=== PATIENT | female | born 1955 | race Caucasian/White ===

== ENCOUNTER 2017-03-14 09:33 | Outpatient (CLI) | payer OTHER ==
--- NOTE | 2017-03-14 14:07 | XRAY Report ---
DATE OF SERVICE: 03/14/2017 THREE VIEW LEFT ELBOW: 03/14/2017 CLINICAL INDICATION: Joint pain. FINDINGS: AP, lateral, oblique views of the left elbow demonstrate no evidence of fracture or dislocation. No effusion is present. The joint spaces appear unremarkable. IMPRESSION: NORMAL LEFT ELBOW. TD: 03/14/2017 14:06
== END 2017-03-14 09:34 | disposition home or self-care (01) ==
LOC: DI 09:33
PROVIDERS: ATTEND Physician Assistant Medical
DX: M25.522 Pain in left elbow (principal)

== ENCOUNTER 2017-07-11 08:00 | Outpatient (CLI) | payer BC, OTHER ==
[2017-07-11 13:18] LABS: CHOL/HDL RATIO 4.6 (<4.4); CHOLESTEROL 230 mg/dL; HDL CHOLESTEROL 50 mg/dL; LDL CHOLESTEROL,CALCULATED 137 mg/dL; LDL/HDL RATIO 2.7 (<4.4); VLDL CHOLESTEROL 43 mg/dL
== END 2017-07-11 08:01 | disposition home or self-care (01) ==
LOC: LAB.N 08:00
PROVIDERS: ATTEND Physician Assistant Medical
DX: E78.2 Mixed hyperlipidemia (principal); Z79.899 Other long term (current) drug therapy
CPT/HCPCS: 36415; 80061; 83721

== ENCOUNTER 2017-12-25 08:00 | Outpatient (CLI) | payer BC, OTHER ==
[2017-12-25 15:45] LABS: ALBUMIN 4.2 g/dL (3.2-5.5); ALBUMIN/GLOBULIN RATIO 1.2 (1.0-2.2); ALKALINE PHOSPHATASE 88 IU/L (42-121); ALT ALANINE AMINOTRANSFERASE 31 IU/L (10-60); AST ASPARTATE AMINOTRANSFERASE 25 IU/L (10-42); BILIRUBIN,TOTAL 0.6 mg/dL (0.2-1.0); BUN - BLOOD UREA NITROGEN 16 mg/dL (6-20); CALCIUM 8.8 mg/dL (8.5-10.3); CARBON DIOXIDE - CO2 23 mmol/L (21-32); CHLORIDE 105 mmol/L (101-111); CHOL/HDL RATIO 4.4 (<4.4); CHOLESTEROL 231 mg/dL; CREATININE 0.8 mg/dL (0.4-1.0); GFR - MDRD 73 (>89); GLUCOSE 96 mg/dL (70-100); HDL CHOLESTEROL 52 mg/dL; LDL CHOLESTEROL,CALCULATED 140 mg/dL; LDL/HDL RATIO 2.7 (<4.4); SODIUM 137 mmol/L (135-145); TOTAL PROTEIN 7.7 g/dL (6.7-8.2); VLDL CHOLESTEROL 39 mg/dL
[2017-12-25 15:51] LABS: BASOPHILS % (AUTO) 0.5 %; EOSINOPHILS # (AUTO) 0.2 10^3/uL (0.0-0.7); EOSINOPHILS % (AUTO) 3.8 %; HGB - HEMOGLOBIN 13.9 g/dL (12.0-16.0); LYMPHOCYTES # (AUTO) 1.6 10^3/uL (1.5-3.5); LYMPHOCYTES % (AUTO) 33.6 %; MEAN CORPUSCULAR HGB CONC 32.8 g/dL (32.0-36.0); MEAN CORPUSCULAR VOLUME 94.3 fL (81.0-99.0); MEAN PLATELET VOLUME 7.2 fL (7.9-10.8); MONOCYTES # (AUTO) 0.5 10^3/uL (0.0-1.0); MONOCYTES % (AUTO) 10.8 %; NEUTROPHILS # (AUTO) 2.4 10^3/uL (1.5-6.6); NEUTROPHILS % (AUTO) 51.3 %; PLT - PLATELET COUNT 351 10^3/uL (130-450); RED BLOOD COUNT 4.47 10^6/uL (4.20-5.40); RED CELL DISTRIBUTION WIDTH 12.9 % (12.0-15.0); WHITE BLOOD COUNT 4.7 x10^3/uL (4.8-10.8)
== END 2017-12-25 08:01 | disposition home or self-care (01) ==
LOC: LAB.N 08:00
PROVIDERS: ATTEND Physician Assistant Medical
DX: Z00.00 Encounter for general adult medical examination without abnormal findings (principal); E78.2 Mixed hyperlipidemia; I10 Essential (primary) hypertension; Z79.899 Other long term (current) drug therapy
CPT/HCPCS: 36415; 80053; 80061; 83721; 84443; 85025

== ENCOUNTER 2018-02-01 08:50 | Outpatient (CLI) | payer BC, OTHER ==
--- NOTE | 2018-02-02 09:09 | DEXA Report ---
Reason: POSTMENOPAUSAL Procedure Date: 02/01/2018 Accession Number: [id number] / [id number] Procedure: DEX - Dexa Spine and/or Hip CPT Code: FULL RESULT: EXAM: Dexa Spine and/or Hip DATE: 02/01/2018 9:10 AM CLINICAL HISTORY: POSTMENOPAUSAL TECHNIQUE: Dual energy x-ray absorptiometry (DXA) was performed on a [employer] System. Regions measured are the AP Spine, femoral neck, and if needed forearm. COMPARISON: None. In accordance with the International Society for Clinical Densitometry (ISCD) guidelines, data from previous exams may be reanalyzed using current recommendations and techniques. This is done to allow a more accurate basis for comparison with the current study. FINDINGS: The data for the lumbar spine is as follows: BMD (g/cm/cm) T-SCORE Z-SCORE REGION L1 0.977 -1.3 -0.5 L2 1.114 -0.7 0.1 L3 1.040 -1.3 -0.6 L4 1.039 -1.3 -0.6 TOTAL 1.040 -1.2 -0.4 NOTE: All evaluable vertebrae are used for classification The data for the hip is as follows: BMD (g/cm/cm) T-SCORE Z-SCORE REGION Neck 0.788 -1.8 -0.9 TOTAL 0.824 -1.5 -0.8 NOTE: The femoral neck or total proximal femur, whichever is lowest, is used for classification. IMPRESSION: THE WHO CLASSIFICATION BASED ON THE INTERNATIONAL REFERENCE STANDARD IS OSTEOPENIA. THE FRACTURE RISK IS INCREASED. RECOMMENDATION: Patients with diagnosis of osteoporosis or osteopenia should have regular bone mineral density assessment. For those eligible for Medicare, routine testing is allowed once every 2 years. Testing frequency can be increased for patients who have rapidly progressing disease or for those who are receiving medical therapy to restore bone mass. COMMENT: World Health Organization (WHO) definitions for osteoporosis and osteopenia: NORMAL BMD: T-score at -1.0 or higher, fracture risk is low OSTEOPENIA BMD: T-score between -1.0 and -2.5, fracture risk is increased. OSTEOPOROSIS BMD: T-score at -2.5 or lower, fracture risk is high. National Osteoporosis Foundation recommends: 1. Obtain adequate dietary calcium (at least 1200 mg per day) and vitamin D (400-800 international units per day). 2. Participate, as appropriate, in regular weightbearing and muscle-strengthening exercise. 3. Avoid tobacco use and reduce alcohol and caffeine intake. 4. For more detailed information see the website at www.NOF.org.
== END 2018-02-01 08:51 | disposition home or self-care (01) ==
LOC: DI 08:50
PROVIDERS: ATTEND Physician Assistant Medical
DX: M85.89 Other specified disorders of bone density and structure, multiple sites (principal)
CPT/HCPCS: 77080

== ENCOUNTER 2018-02-01 08:51 | Outpatient (CLI) | payer BC, OTHER ==
--- NOTE | 2018-02-02 09:08 | Mammography Report ---
Reason: ANNUAL SCREENING Procedure Date: 02/01/2018 Accession Number: [id number] / [id number] Procedure: WILMER - Screening Mammo Dig Bilat CPT Code: FULL RESULT: EXAM: Screening Mammo Dig Bilat DATE: 02/01/2018 9:20 AM CLINICAL HISTORY: Screening encounter. History of nulliparity. TECHNIQUE: Bilateral CC and MLO views were obtained. A right laterally exaggerated CC view was obtained. COMPARISON: 10/22/2015 through 07/24/2012. FINDINGS: The breasts demonstrate scattered fibroglandular densities bilaterally. No suspicious masses, clustered microcalcifications, or regions of architectural distortion are identified. IMPRESSION: Negative examination RECOMMENDATION: Routine annual screening unless otherwise clinically indicated. BIRADS CATEGORY 1: Negative STANDARD QUALIFYING STATEMENTS: 1. This examination was not reviewed with the aid of Computer-Aided Detection (CAD). 2. A negative or benign imaging report should not preclude biopsy if clinically suspicious findings are present. 3. Dense breasts may obscure an underlying neoplasm. 4. This examination was reviewed without the aid of 3D breast imaging (tomosynthesis).
== END 2018-02-01 08:52 | disposition home or self-care (01) ==
LOC: DI 08:51
PROVIDERS: ATTEND Physician Assistant Medical
DX: Z12.31 Encounter for screening mammogram for malignant neoplasm of breast (principal)
CPT/HCPCS: 77067

== ENCOUNTER 2018-04-03 10:08 | Outpatient (CLI) | payer BC, OTHER ==
[2018-04-03 13:08] LABS: CHOL/HDL RATIO 4.1 (<4.4); CHOLESTEROL 210 mg/dL; HDL CHOLESTEROL 51 mg/dL; LDL CHOLESTEROL,CALCULATED 126 mg/dL; LDL/HDL RATIO 2.5 (<4.4); VLDL CHOLESTEROL 33 mg/dL
== END 2018-04-03 23:59 | disposition home or self-care (01) ==
LOC: LAB.N 10:08
PROVIDERS: ATTEND Physician Assistant Medical
DX: E78.5 Hyperlipidemia, unspecified (principal); Z79.899 Other long term (current) drug therapy
CPT/HCPCS: 36415; 80061; 83721

== ENCOUNTER 2018-12-20 13:11 | Outpatient (CLI) | payer BC, OTHER ==
[2018-12-20 13:43] LABS: BASOPHILS # (AUTO) 0.1 10^3/uL (0.0-0.1); BASOPHILS % (AUTO) 0.7 %; EOSINOPHILS # (AUTO) 0.2 10^3/uL (0.0-0.7); EOSINOPHILS % (AUTO) 2.2 %; LYMPHOCYTES # (AUTO) 1.8 10^3/uL (1.5-3.5); LYMPHOCYTES % (AUTO) 19.7 %; MEAN CORPUSCULAR HEMOGLOBIN 30.6 pg (27.0-31.0); MEAN CORPUSCULAR HGB CONC 32.3 g/dL (32.0-36.0); MEAN CORPUSCULAR VOLUME 94.7 fL (81.0-99.0); MEAN PLATELET VOLUME 8.6 fL (7.9-10.8); MONOCYTES # (AUTO) 0.9 10^3/uL (0.0-1.0); MONOCYTES % (AUTO) 9.4 %; NEUTROPHILS # (AUTO) 6.2 10^3/uL (1.5-6.6); NEUTROPHILS % (AUTO) 67.6 %; PLT - PLATELET COUNT 317 10^3/uL (130-450); RED BLOOD COUNT 4.57 10^6/uL (4.20-5.40); RED CELL DISTRIBUTION WIDTH 12.8 % (12.0-15.0); WHITE BLOOD COUNT 9.2 x10^3/uL (4.8-10.8)
[2018-12-20 14:10] LABS: ALBUMIN 4.5 g/dL (3.2-5.5); ALBUMIN/GLOBULIN RATIO 1.3 (1.0-2.2); ALKALINE PHOSPHATASE 102 IU/L (42-121); ALT ALANINE AMINOTRANSFERASE 46 IU/L (10-60); AST ASPARTATE AMINOTRANSFERASE 30 IU/L (10-42); BILIRUBIN,TOTAL 1.2 mg/dL (0.2-1.0); BUN - BLOOD UREA NITROGEN 15 mg/dL (6-20); CALCIUM 9.1 mg/dL (8.5-10.3); CARBON DIOXIDE - CO2 25 mmol/L (21-32); CHLORIDE 102 mmol/L (101-111); CHOLESTEROL 218 mg/dL; CREATININE 0.9 mg/dL (0.4-1.0); GFR - MDRD 63 (>89); GLUCOSE 101 mg/dL (70-100); HDL CHOLESTEROL 54 mg/dL; LDL CHOLESTEROL,CALCULATED 135 mg/dL; LDL/HDL RATIO 2.5 (<4.4); SODIUM 138 mmol/L (135-145); TOTAL PROTEIN 7.9 g/dL (6.7-8.2); VLDL CHOLESTEROL 29 mg/dL
--- NOTE | 2018-12-21 15:26 | XRAY Report ---
Reason: ABDOMINAL PAIN Procedure Date: 12/20/2018 Accession Number: [id number] / [id number] Procedure: XR - Abdomen 2 View X-Ray CPT Code: 37185 Final Report FULL RESULT: EXAM: ABDOMEN RADIOGRAPHY EXAM DATE: 12/20/2018 03:36 PM. CLINICAL HISTORY: Left lower quadrant pain for 1-2 days. COMPARISON: None. TECHNIQUE: 2 views. FINDINGS: Lung Bases: Unremarkable. Bowel Gas Pattern: Within normal limits. No dilated loops or abnormal fluid levels. No excessive stool. Free Air: None identified. Other: No soft tissue calcifications identified. IMPRESSION: Normal 2-view abdomen x-ray. RADIA
== END 2018-12-20 13:12 | disposition home or self-care (01) ==
LOC: LAB 13:11 → DI 13:12
PROVIDERS: ATTEND Nurse Practitioner
DX: R10.32 Left lower quadrant pain (principal); M85.80 Other specified disorders of bone density and structure, unspecified site; I10 Essential (primary) hypertension; E78.2 Mixed hyperlipidemia; B00.9 Herpesviral infection, unspecified; Z79.899 Other long term (current) drug therapy
CPT/HCPCS: 36415; 74019; 80053; 80061; 83721; 84443; 85025

== ENCOUNTER 2019-03-08 10:47 | Outpatient (CLI) | payer BC, OTHER ==
--- NOTE | 2019-03-11 11:43 | Mammography Report ---
Reason: SCREENING MAMMO Procedure Date: 03/08/2019 Accession Number: [id number] / [id number] Procedure: WILMER - Screening Mammo w/Azam CPT Code: Final Report FULL RESULT: EXAM: Screening Mammo w/Azam DATE: 03/08/2019 11:11 AM CLINICAL HISTORY: Routine screening. Nulliparous patient. TECHNIQUE: (B) - Bilateral CC and MLO views were obtained. COMPARISON: 02/01/2018, 10/22/2015, 09/11/2014, 08/30/2013, 07/24/2012, 07/09/2010 and 01/12/2009 PARENCHYMAL PATTERN: (A) - The breasts demonstrate scattered fibroglandular densities bilaterally. FINDINGS: No significant interval change. There are no suspicious masses, calcifications, or areas of distortion. IMPRESSION: Negative examination. BI-RADS category 1. RECOMMENDATION: (ANNUAL) - Recommend routine annual screening mammography. BI-RADS CATEGORY: (1) - Negative. STANDARD QUALIFYING STATEMENTS: 1. This examination was not reviewed with the aid of Computer-Aided Detection (CAD). 2. A negative or benign imaging report should not preclude biopsy if clinically suspicious findings are present. 3. Dense breasts may obscure an underlying neoplasm. 4. This examination was reviewed with the aid of 3D breast imaging (tomosynthesis).
== END 2019-03-08 10:48 | disposition home or self-care (01) ==
LOC: DI 10:47
DX: Z12.31 Encounter for screening mammogram for malignant neoplasm of breast (principal)
CPT/HCPCS: 77063; 77067

== ENCOUNTER 2019-09-24 13:29 | Outpatient (CLI) | payer BC, OTHER | END 2019-09-24 13:30 | disposition home or self-care (01) | LOC: COV 13:29 | PROVIDERS: ATTEND Family Medicine | DX: R50.9 Fever, unspecified (principal); M79.10 Myalgia, unspecified site; R53.83 Other fatigue; R19.7 Diarrhea, unspecified; R11.0 Nausea; Z20.828 Contact with and (suspected) exposure to other viral communicable diseases ==

== ENCOUNTER 2020-03-30 13:40 | Outpatient (CLI) | payer BC, OTHER ==
--- NOTE | 2020-03-31 12:29 | Mammography Report ---
BILATERAL DIGITAL SCREENING MAMMOGRAM 3D/2D: 03/30/2020 CLINICAL: Routine screening. Comparison is made to exams dated: 03/08/2019 mammogram, 02/01/2018 mammogram, 10/22/2015 mammogram, mammogram, and 08/30/2013 mammogram - [facility]. The tissue of both breast s is predominantly fatty. No significant masses, calcifications, or other findings are seen in either breast. There has been no significant interval change. IMPRESSION: NEGATIVE There is no mammographic evidence of malignancy. A 1 year screening mammogram is recommended. This exam was interpreted at Station ID: [id number]. NOTE: For mammograms, a report in lay terms will be sent to the patient. Approximately 15% of breast malignancies will not be visualized mammographically. In the management of a palpable breast mass, a negative mammogram must not discourage biopsy of a clinically suspicious lesion. Electronically Signed By: Sky Smalls M.D., jr/penrad:03/30/2020 14:40:42 ACR BI-RADS Category 1: Negative 3341F PARENCHYMAL PATTERN: (F) - The breast(s) demonstrate(s) diffuse fatty replacement. BI-RADS CATEGORY: (1) - 1 RECOMMENDATION: (ANNUAL) - Recommend routine annual screening mammography. [id number] 1 year screening LATERALITY: (B)
== END 2020-03-30 13:41 | disposition home or self-care (01) ==
LOC: DI 13:40
PROVIDERS: ATTEND Nurse Practitioner
DX: Z12.31 Encounter for screening mammogram for malignant neoplasm of breast (principal)

== ENCOUNTER 2020-05-19 20:11 | Emergency (ER) | payer BC, OTHER ==
--- NOTE | 2020-05-19 20:20 | ED Physician Documentation ---
History of Present Illness - Stated complaint Stated Complaint: IRREGULAR HR - Chief complaint Chief Complaint: Cardiac - History obtained from History obtained from: Patient - History of Present Illness Timing: Enter time Pain level max: 0 Pain level now: 0 Improved by: rest Worsened by: exertion - Additonal information Additional information: c/o sudden onset rapid and irregular palpitations at 6 PM while at home at rest. She has had similar symptoms in the past but these had been self-limited and thus she has not been evaluated previously while having symptoms. She had discussed the symptoms with her doctor in the past and was advised to come to the ED should she have symptoms again. She denies dyspnea, chest pain, lightheadedness. Review of Systems Constitutional: reports: Reviewed and negative Cardiac: reports: Palpitations. denies: Chest pain / pressure, Pedal edema, Calf pain Respiratory: reports: Reviewed and negative GI: reports: Reviewed and negative PD PAST MEDICAL HISTORY - Past Medical History Past Medical History: Yes Cardiovascular: Hypertension, High cholesterol - Present Medications Home Medications: Ambulatory Orders Medication Instructions Recorded Confirmed Amlodipine Besylate [Norvasc] 2.5 mg PO DAILY 05/19/20 05/19/20 Aspirin Chewable [[place] 81 mg PO DAILY 05/19/20 05/19/20 Aspirin] Losartan Potassium [Cozaar] 100 mg PO DAILY 05/19/20 05/19/20 Multivitamin/Iron/Folic Acid 1 tab ORAL DAILY 05/19/20 05/19/20 [Centrum Women Tablet] Omeprazole Magnesium [Prilosec] 40 mg PO DAILY 05/19/20 05/19/20 Pravastatin [Pravachol] 20 mg PO DAILY 05/19/20 05/19/20 - Allergies Allergies/Adverse Reactions: Allergies Allergy/AdvReac Type Severity Reaction Status Date / Time No Known Drug Allergies Allergy Verified 05/19/20 20:29 PD ED PE NORMAL - Vitals Vital signs reviewed: Yes - General General: Alert and oriented X 3, No acute distress, Well developed/nourished - HEENT HEENT: Moist mucous membranes - Neck Neck: Supple, no meningeal sign - Cardiac Cardiac: No murmur - Respiratory Respiratory: No respiratory distress, Clear bilaterally - Abdomen Abdomen: Soft, Non tender - Derm Derm: Normal color, Warm and dry - Extremities Extremities: No edema PD ED PE EXPANDED - Cardiac Cardiac: Tachy, Irregularly irregular Results - Vitals Vitals: Oxygen O2 Source Room air - EKG (time done) No standard instances Rate: Rate (enter#) (134) Rhythm: Atrial fibrillation [place]: Normal Ischemia: Non specific changes (V3-V6) - Labs Labs: Laboratory Tests 05/19/20 05/19/20 05/19/20 20:35 20:35 20:35 WBC 10.1 RBC 4.70 Hgb 14.5 Hct 42.9 MCV 91.3 MCH 30.9 MCHC 33.8 RDW 12.6 Plt Count 382 MPV 8.7 Neut # (Auto) 5.7 Lymph # (Auto) 3.3 [place] # (Auto) 1.0 Eos # (Auto) 0.0 Baso # (Auto) 0.1 Absolute Nucleated RBC 0.00 Nucleated RBC % 0.0 D-Dimer Sodium 137 Potassium 3.2 L Chloride 103 Carbon Dioxide 21 Anion Gap 13.0 BUN 22 H Creatinine 1.1 H Estimated GFR (MDRD) 50 L Glucose 119 H Calcium 9.5 Total Bilirubin 0.7 AST 25 ALT 36 Alkaline Phosphatase 89 Troponin I High Sens 4.7 Total Protein 7.8 Albumin 4.7 Globulin 3.1 Albumin/Globulin Ratio 1.5 Lipase 35 05/20/20 00:15 WBC RBC Hgb Hct MCV MCH MCHC RDW Plt Count MPV Neut # (Auto) Lymph # (Auto) [place] # (Auto) Eos # (Auto) Baso # (Auto) Absolute Nucleated RBC Nucleated RBC % D-Dimer < 200.0 L Sodium Potassium Chloride Carbon Dioxide Anion Gap BUN Creatinine Estimated GFR (MDRD) Glucose Calcium Total Bilirubin AST ALT Alkaline Phosphatase Troponin I High Sens Total Protein Albumin Globulin Albumin/Globulin Ratio Lipase - Rads (name of study) chest xray Radiology: Prelim report reviewed, See rad report PD MEDICAL DECISION MAKING - ED course Complexity details: reviewed results, re-evaluated patient, considered differential, d/w patient ED course: new onset atrial fibrillation. she is given IV diltiazem 15 mg with improvement in heart rate but remained in atrial fibrillation, with gradual increase to tach ycardic rates. she is then given 20mg diltiazem which again resulted in good rate control but remained in atrial fibrillation. I discussed options with her including discharge with rx for rate control and anticoagulant such as warfarin or NOAC, electrocardioversion, or chemical cardioversion. She opts for chemical cardioversion attempt with procainamide; within a few minutes of procainamide drip she converted to NSR. This drip was discontinued shortly after she converted and she reports resolution of her symptoms (palpitations) and is discharged with instruction to follow up with PMD, return if symptoms recur Departure - Departure Disposition: 01 Home, Self Care Clinical Impression: Atrial fibrillation Qualifiers: Atrial fibrillation type: paroxysmal Qualified Code(s): I48.0 - Paroxysmal atrial fibrillation Condition: Good Instructions: ED Afib, ED Potassium Deficiency Follow-Up: Beulah Thakkar ARNP, [employer] [Primary Care Provider] - Discharge Date/Time: 05/20/20 02:00
--- OUTSIDE RECORDS SUMMARY | 2020-05-19 20:23 | EXTERNAL MEDICAL SUMMARY RPT | Continuity of Care Document ---
:1955 Demographics Phone Unavailable Preferred Language Unknown Marital Status Unknown Druze Affiliation Unknown Race Unknown Ethnic Group Unknown Author Organization [place] Address [address] [id number] Phone Social History date description facility [id number]
[2020-05-19] MEDS ORDERED: diltiaZEM INJ 5 MG/ML VIAL IVP STA ×2 (20:43→22:04)
[2020-05-19 20:48] LABS: BASOPHILS # (AUTO) 0.1 10^3/uL (0.0-0.1); BASOPHILS % (AUTO) 0.5 %; EOSINOPHILS % (AUTO) 0.1 %; HCT - HEMATOCRIT 42.9 % (37.0-47.0); HGB - HEMOGLOBIN 14.5 g/dL (12.0-16.0); LYMPHOCYTES # (AUTO) 3.3 10^3/uL (1.5-3.5); LYMPHOCYTES % (AUTO) 33.1 %; MEAN CORPUSCULAR HEMOGLOBIN 30.9 pg (27.0-31.0); MEAN CORPUSCULAR HGB CONC 33.8 g/dL (32.0-36.0); MEAN CORPUSCULAR VOLUME 91.3 fL (81.0-99.0); MEAN PLATELET VOLUME 8.7 fL (7.9-10.8); MONOCYTES % (AUTO) 9.5 %; NEUTROPHILS # (AUTO) 5.7 10^3/uL (1.5-6.6); NEUTROPHILS % (AUTO) 56.7 %; PLT - PLATELET COUNT 382 10^3/uL (130-450); RED CELL DISTRIBUTION WIDTH 12.6 % (12.0-15.0); WHITE BLOOD COUNT 10.1 x10^3/uL (4.8-10.8)
--- NOTE | 2020-05-19 20:57 | XRAY Report ---
PROCEDURE: Chest 1 View X-Ray INDICATIONS: Chest pain TECHNIQUE: One view of the chest was acquired. COMPARISON: None. FINDINGS: Surgical changes and devices: None. Lungs and pleura: No pleural effusions or pneumothorax. Lungs are clear. Mediastinum: Mediastinal contours appear normal. Heart size is normal. Bones and chest wall: No suspicious bony lesions. Overlying soft tissues appear unremarkable. IMPRESSION: No acute cardiopulmonary abnormality. Reviewed by: Velasquez Mcnulty MD on 05/19/2020 8:56 PM PDT Approved by: Velasquez Mcnulty MD on 05/19/2020 8:56 PM PDT Station ID: [id number]
[2020-05-19 20:59] LABS: ALBUMIN 4.7 g/dL (3.2-5.5); ALBUMIN/GLOBULIN RATIO 1.5 (1.0-2.2); BILIRUBIN,TOTAL 0.7 mg/dL (0.2-1.0); CALCIUM 9.5 mg/dL (8.5-10.3); CREATININE 1.1 mg/dL (0.4-1.0); POTASSIUM 3.2 mmol/L (3.5-5.0); TOTAL PROTEIN 7.8 g/dL (6.7-8.2)
[2020-05-19] MEDS ORDERED: PROCAINAMIDE 100 MG/1 ML 10 ML MDV IV STA (23:56)
[2020-05-20] MEDS ORDERED: PROCAINAMIDE 1,000 MG in SODIUM CHLORIDE 0.9% 240 ML IV STA (00:13)
[2020-05-20] MEDS ORDERED: PROCAINAMIDE 1,000 MG in SODIUM CHLORIDE 0.9% 240 ML IV ONE (00:20)
[2020-05-20] MEDS ORDERED: PROCAINAMIDE 1,000 MG/10 ML SYRINGE ONE (00:32)
[2020-05-20] MEDS ORDERED: POTASSIUM CHLORIDE 20 MEQ TABLET PO STA (01:09)
[2020-05-20 02:22] VITALS: BP 137/74
== END 2020-05-20 02:00 | disposition home or self-care (01) ==
LOC: ED 20:11
DX: I48.0 Paroxysmal atrial fibrillation (principal); I10 Essential (primary) hypertension
CPT/HCPCS: 36415; 71045; 80053; 83690; 84484; 85025; 85379; 93005; 96365; 96375; 96376; 99284; 99285; A9270; J2690

== ENCOUNTER 2020-05-25 13:39 | Outpatient (CLI) | payer BC, OTHER ==
[2020-05-25 18:32] LABS: THYROID STIMULATING HORMONE 0.98 uIU/mL (0.34-5.60)
== END 2020-05-25 13:40 | disposition home or self-care (01) ==
LOC: LAB.N 13:39
PROVIDERS: ATTEND Internal Medicine
DX: I48.0 Paroxysmal atrial fibrillation (principal)
CPT/HCPCS: 36415; 84443

== ENCOUNTER 2021-01-05 09:35 | Outpatient (CLI) | payer MEDICARE, BC, OTHER ==
[2021-01-05 12:16] LABS: BASOPHILS % (AUTO) 0.7 %; EOSINOPHILS # (AUTO) 0.1 10^3/uL (0.0-0.7); EOSINOPHILS % (AUTO) 2.4 %; HCT - HEMATOCRIT 44.4 % (37.0-47.0); HGB - HEMOGLOBIN 14.6 g/dL (12.0-16.0); LYMPHOCYTES # (AUTO) 1.6 10^3/uL (1.5-3.5); LYMPHOCYTES % (AUTO) 35.1 %; MEAN CORPUSCULAR HEMOGLOBIN 31.6 pg (27.0-31.0); MEAN CORPUSCULAR HGB CONC 32.9 g/dL (32.0-36.0); MEAN CORPUSCULAR VOLUME 96.1 fL (81.0-99.0); MEAN PLATELET VOLUME 8.7 fL (7.9-10.8); MONOCYTES # (AUTO) 0.6 10^3/uL (0.0-1.0); MONOCYTES % (AUTO) 13.5 %; NEUTROPHILS # (AUTO) 2.2 10^3/uL (1.5-6.6); NEUTROPHILS % (AUTO) 48.1 %; PLT - PLATELET COUNT 386 10^3/uL (130-450); RED BLOOD COUNT 4.62 10^6/uL (4.20-5.40); RED CELL DISTRIBUTION WIDTH 13.1 % (12.0-15.0); WHITE BLOOD COUNT 4.6 x10^3/uL (4.8-10.8)
[2021-01-05 12:32] LABS: ALBUMIN 4.3 g/dL (3.2-5.5); ALBUMIN/GLOBULIN RATIO 1.4 (1.0-2.2); ALKALINE PHOSPHATASE 92 IU/L (42-121); ALT ALANINE AMINOTRANSFERASE 42 IU/L (10-60); AST ASPARTATE AMINOTRANSFERASE 24 IU/L (10-42); BILIRUBIN,TOTAL 0.9 mg/dL (0.2-1.0); BUN - BLOOD UREA NITROGEN 15 mg/dL (6-20); CALCIUM 9.2 mg/dL (8.5-10.3); CARBON DIOXIDE - CO2 26 mmol/L (21-32); CHLORIDE 100 mmol/L (101-111); CHOL/HDL RATIO 4.6 (<4.4); CHOLESTEROL 230 mg/dL; CREATININE 0.8 mg/dL (0.4-1.0); GFR - MDRD 72 (>89); GLUCOSE 96 mg/dL (70-100); HDL CHOLESTEROL 50 mg/dL; LDL CHOLESTEROL,CALCULATED 136 mg/dL; LDL/HDL RATIO 2.7 (<4.4); POTASSIUM 4.3 mmol/L (3.5-5.0); SODIUM 135 mmol/L (135-145); TOTAL PROTEIN 7.4 g/dL (6.7-8.2); TRIGLYCERIDES 219 mg/dL; VLDL CHOLESTEROL 44 mg/dL
[2021-01-05 12:42] LABS: THYROID STIMULATING HORMONE 1.92 uIU/mL (0.34-5.60)
== END 2021-01-05 09:36 | disposition home or self-care (01) ==
LOC: LAB.N 09:35
PROVIDERS: ATTEND Internal Medicine
DX: I10 Essential (primary) hypertension (principal); I48.0 Paroxysmal atrial fibrillation; M85.80 Other specified disorders of bone density and structure, unspecified site; E78.5 Hyperlipidemia, unspecified
CPT/HCPCS: 36415; 80053; 80061; 83721; 84443; 85025

== ENCOUNTER 2021-02-25 08:19 | Outpatient (CLI) | payer MEDICARE, BC, OTHER ==
--- NOTE | 2021-02-25 09:20 | DEXA Report ---
PROCEDURE: Dexa Spine and/or Hip INDICATIONS: POST MENOPAUSAL TECHNIQUE: Dual energy x-ray absorptiometry (DXA) was performed on a [employer] System. Regions measur ed are the AP Spine, femoral neck, and if needed forearm. COMPARISON: None. FINDINGS: Lumbar Spine: Bone Mineral Density 1.045 g/cm/cm,T score -1.1, osteopenia Left Hip: Bone Mineral Density 0.822 g/cm/cm,T score -1.5, osteopenia Left Femoral Neck: Bone Mineral Density 0.786 g/cm/cm, T score -1.8, osteopenia (T score greater or equal to -1.0: NORMAL) (T score from -1.1 to -2.4: OSTEOPENIA) (T score less than or equal to -2.5 to: OSTEOPOROSIS) Impression: Osteopenia Patients with diagnosis of osteoporosis or osteopenia should have regular bone mineral density assess ment. For those eligible for Medicare, routine testing is allowed once every 2 years. Testing frequ ency can be increased for patients who have rapidly progressing disease or for those who are receivin g medical therapy to restore bone mass. Reviewed by: Kody Thompson on 02/25/2021 9:19 AM PST Approved by: Kody Thompson on 02/25/2021 9:19 AM PST Station ID: [id number]
== END 2021-02-25 08:20 | disposition home or self-care (01) ==
LOC: DI 08:19
PROVIDERS: ATTEND Internal Medicine
DX: M85.89 Other specified disorders of bone density and structure, multiple sites (principal); Z78.0 Asymptomatic menopausal state

== ENCOUNTER 2021-03-30 09:24 | Outpatient (CLI) | payer MEDICARE, BC, OTHER ==
--- NOTE | 2021-03-31 07:03 | Mammography Report ---
BILATERAL DIGITAL SCREENING MAMMOGRAM 3D/2D: 03/30/2021 CLINICAL: Routine screening. Comparison is made to exams dated: 03/30/2020 mammogram, 03/08/2019 mammogram, 02/01/2018 mammogram, mammogram, 09/11/2014 mammogram, and 08/30/2013 mammogram - [facility]. The tissue of both breasts is predominantly fatty. No significant masses, calcifications, or other findings are seen in either breast. There has been no significant interval change. IMPRESSION: NEGATIVE There is no mammographic evidence of malignancy. A 1 year screening mammogram is recommended. This exam was interpreted at Station ID: [id number]. NOTE: For mammograms, a report in lay terms will be sent to the patient. Approximately 15% of breast malignancies will not be visualized mammographically. In the management of a palpable breast mass, a negative mammogram must not discourage biopsy of a clinically suspicious lesion. Electronically Signed By: Kody Thompson acr/penrad:03/30/2021 10:15:05 ACR BI-RADS Category 1: Negative 3341F PARENCHYMAL PATTERN: (F) - The breast(s) demonstrate(s) diffuse fatty replacement. BI-RADS CATEGORY: (1) - 1 RECOMMENDATION: (ANNUAL) - Recommend routine annual screening mammography. [id number] 1 year screening LATERALITY: (B)
== END 2021-03-30 09:25 | disposition home or self-care (01) ==
LOC: DI.N 09:24
DX: Z12.31 Encounter for screening mammogram for malignant neoplasm of breast (principal)

== ENCOUNTER 2021-06-08 10:32 | Outpatient (CLI) | payer MEDICARE, BC, OTHER ==
[2021-06-08 12:00] LABS: ALBUMIN 4.3 g/dL (3.2-5.5); ALBUMIN/GLOBULIN RATIO 1.4 (1.0-2.2); ALKALINE PHOSPHATASE 92 IU/L (42-121); ALT ALANINE AMINOTRANSFERASE 51 IU/L (10-60); AST ASPARTATE AMINOTRANSFERASE 23 IU/L (10-42); BILIRUBIN,TOTAL 0.9 mg/dL (0.2-1.0); BUN - BLOOD UREA NITROGEN 14 mg/dL (6-20); CARBON DIOXIDE - CO2 25 mmol/L (21-32); CHLORIDE 102 mmol/L (101-111); CHOL/HDL RATIO 3.2 (<4.4); CHOLESTEROL 171 mg/dL; CREATININE 0.9 mg/dL (0.4-1.0); GFR - MDRD 63 (>89); GLUCOSE 109 mg/dL (70-100); HDL CHOLESTEROL 54 mg/dL; LDL CHOLESTEROL,CALCULATED 89 mg/dL; LDL/HDL RATIO 1.6 (<4.4); POTASSIUM 4.3 mmol/L (3.5-5.0); SODIUM 135 mmol/L (135-145); TOTAL PROTEIN 7.4 g/dL (6.7-8.2); TRIGLYCERIDES 141 mg/dL; VLDL CHOLESTEROL 28 mg/dL
== END 2021-06-08 10:33 | disposition home or self-care (01) ==
LOC: LAB.N 10:32
PROVIDERS: ATTEND Internal Medicine
DX: E78.2 Mixed hyperlipidemia (principal)
CPT/HCPCS: 36415; 80053; 80061; 83721

== ENCOUNTER 2021-12-28 11:11 | Outpatient (CLI) | payer MEDICARE, BC, OTHER ==
[2021-12-28 17:56] LABS: BASOPHILS # (AUTO) 0.1 10^3/uL (0.0-0.1); BASOPHILS % (AUTO) 1.1 %; EOSINOPHILS # (AUTO) 0.1 10^3/uL (0.0-0.7); EOSINOPHILS % (AUTO) 2.7 %; HCT - HEMATOCRIT 43.9 % (37.0-47.0); HGB - HEMOGLOBIN 14.1 g/dL (12.0-16.0); LYMPHOCYTES # (AUTO) 1.5 10^3/uL (1.5-3.5); LYMPHOCYTES % (AUTO) 32.8 %; MEAN CORPUSCULAR HEMOGLOBIN 30.4 pg (27.0-31.0); MEAN CORPUSCULAR HGB CONC 32.1 g/dL (32.0-36.0); MEAN CORPUSCULAR VOLUME 94.6 fL (81.0-99.0); MEAN PLATELET VOLUME 9.1 fL (7.9-10.8); MONOCYTES # (AUTO) 0.6 10^3/uL (0.0-1.0); MONOCYTES % (AUTO) 13.6 %; NEUTROPHILS # (AUTO) 2.2 10^3/uL (1.5-6.6); NEUTROPHILS % (AUTO) 49.6 %; PLT - PLATELET COUNT 348 10^3/uL (130-450); RED BLOOD COUNT 4.64 10^6/uL (4.20-5.40); RED CELL DISTRIBUTION WIDTH 12.4 % (12.0-15.0); WHITE BLOOD COUNT 4.5 x10^3/uL (4.8-10.8)
[2021-12-28 18:13] LABS: ALBUMIN 4.3 g/dL (3.2-5.5); ALBUMIN/GLOBULIN RATIO 1.3 (1.0-2.2); ALKALINE PHOSPHATASE 94 IU/L (42-121); ALT ALANINE AMINOTRANSFERASE 59 IU/L (10-60); AST ASPARTATE AMINOTRANSFERASE 26 IU/L (10-42); BILIRUBIN,TOTAL 0.8 mg/dL (0.2-1.0); BUN - BLOOD UREA NITROGEN 15 mg/dL (6-20); CALCIUM 9.3 mg/dL (8.5-10.3); CARBON DIOXIDE - CO2 25 mmol/L (21-32); CHLORIDE 103 mmol/L (101-111); CHOL/HDL RATIO 2.8 (<4.4); CHOLESTEROL 138 mg/dL; CREATININE 0.9 mg/dL (0.4-1.0); GFR - MDRD 63 (>89); GLUCOSE 108 mg/dL (70-100); HDL CHOLESTEROL 49 mg/dL; LDL CHOLESTEROL,CALCULATED 55 mg/dL; LDL/HDL RATIO 1.1 (<4.4); POTASSIUM 4.3 mmol/L (3.5-5.0); SODIUM 137 mmol/L (135-145); TOTAL PROTEIN 7.5 g/dL (6.7-8.2); TRIGLYCERIDES 169 mg/dL; VLDL CHOLESTEROL 34 mg/dL
[2021-12-28 18:24] LABS: THYROID STIMULATING HORMONE 1.63 uIU/mL (0.34-5.60)
== END 2021-12-28 11:12 | disposition home or self-care (01) ==
LOC: LAB.N 11:11
PROVIDERS: ATTEND Internal Medicine
DX: I10 Essential (primary) hypertension (principal); E78.5 Hyperlipidemia, unspecified; I48.0 Paroxysmal atrial fibrillation
CPT/HCPCS: 36415; 80053; 80061; 83721; 84443; 85025

== ENCOUNTER 2022-01-10 10:55 | Outpatient (CLI) | payer MEDICARE, BC, OTHER ==
--- NOTE | 2022-01-10 14:51 | XRAY Report ---
PROCEDURE: Foot 3 View LT INDICATIONS: FOOT PAIN,LEFT TECHNIQUE: 3 views of the foot were acquired. COMPARISON: None FINDINGS: Bones: No fractures or dislocations. No suspicious bony lesions. Mild scattered IP narrowing. Soft tissues: No tibiotalar joint effusion. Achilles tendon appears normal. IMPRESSION: Mild scattered degenerative IP narrowing. Reviewed by: Rebecca Anderson MD on 01/10/2022 2:49 PM [facility] Approved by: Rebecca Anderson MD on 01/10/2022 2:49 PM [facility] Station ID: [id number]
== END 2022-01-10 10:56 | disposition home or self-care (01) ==
LOC: DI 10:55
PROVIDERS: ATTEND Internal Medicine
DX: M19.072 Primary osteoarthritis, left ankle and foot (principal)

== ENCOUNTER 2022-01-27 10:51 | Outpatient (CLI) | payer MEDICARE, BC, OTHER ==
--- NOTE | 2022-01-27 19:48 | CT Report ---
PROCEDURE: PELVIS WO INDICATIONS: RIGHT GROIN PAIN TECHNIQUE: Noncontrast 3 mm axial sections acquired through the bony pelvis, with coronal and sagittal reformatt ing. For radiation dose reduction, the following was used: automated exposure control, adjustment of mA and/or kV according to patient size. COMPARISON: None. FINDINGS: Image quality: Excellent. Bones: Pelvic ring is intact. No acute pelvic or hip fracture. No hip dislocation. Moderate bilatera l hip joint osteoarthritic changes are seen with joint space narrowing, subchondral sclerosis and mar ginal osteophyte formation. No evidence of avascular necrosis of femoral head. Osteoarthritic changes also seen in bilateral sacroiliac joints. Degenerative disc disease in visualized lower lumbar spine is seen. No suspicious intraosseous lesion. Soft tissues: There is no pelvic free fluid of free air. No abnormal bowel wall thickening or mesent chai fat stranding. Appendix is visualized and is within normal limits. Bladder wall thickness is nor mal. Uterus and bilateral adnexa show no gross abnormalities. No inguinal hernia or lymphadenopathy. No abnormal soft tissue calcifications. No discrete soft tissue mass or drainable fluid collection. IMPRESSION: 1. Osteoarthritic changes throughout bony pelvis. No fracture or dislocation. No evidence of avascula r necrosis of femoral head. Degenerative disc disease in visualized lower lumbar spine. 2. No pelvic or right hip soft tissue abnormalities. No free fluid of free air. No inguinal hernia or lymphadenopathy. Reviewed by: Enoch Vasquez MD on 01/27/2022 7:47 PM PST Approved by: Enoch Vasquez MD on 01/27/2022 7:47 PM PST Station ID: [id number]
== END 2022-01-27 10:52 | disposition home or self-care (01) ==
LOC: DI 10:51
PROVIDERS: ATTEND Internal Medicine
DX: M16.0 Bilateral primary osteoarthritis of hip (principal); M47.898 Other spondylosis, sacral and sacrococcygeal region; M51.36 Other intervertebral disc degeneration, lumbar region

== ENCOUNTER 2022-03-29 08:00 | Outpatient (CLI) | payer MEDICARE, BC, OTHER ==
--- NOTE | 2022-03-29 16:10 | XRAY Report ---
PROCEDURE: Hip 2 View RT INDICATIONS: RIGHT HIP PAIN TECHNIQUE: 2 views of the right hip were acquired. COMPARISON: None FINDINGS: Bones: No fractures or dislocations. No suspicious bony lesions. The visualized pelvic ring appear s intact. Mild bilateral hip arthritis. Soft tissues: No suspicious soft tissue calcifications or masses. IMPRESSION: Mild osteoarthritis. Reviewed by: Michelle Watson MD, PhD on 03/29/2022 4:08 PM PST Approved by: Michelle Watson MD, PhD on 03/29/2022 4:08 PM [facility] Station ID: [id number]
== END 2022-03-29 23:59 | disposition home or self-care (01) ==
LOC: DI.WOS 08:00
PROVIDERS: ATTEND Orthopaedic Surgery
DX: M16.11 Unilateral primary osteoarthritis, right hip (principal)

== ENCOUNTER 2022-04-07 08:00 | Outpatient (CLI) | payer MEDICARE, OTHER ==
[2022-04-07 22:39] LABS: BACTERIAL VAGINOSIS DNA NEGATIVE (NEGATIVE)
[2022-04-07 22:40] LABS: CANDIDA GLABRATA DNA NEGATIVE (NEGATIVE); CANDIDA GROUP DNA NEGATIVE (NEGATIVE); CANDIDA KRUSEI DNA NEGATIVE (NEGATIVE); TRICHOMONAS VAGINALIS DNA NEGATIVE (NEGATIVE)
== END 2022-04-07 23:59 | disposition home or self-care (01) ==
LOC: LAB.WCP 08:00
PROVIDERS: ATTEND Internal Medicine
DX: N89.8 Other specified noninflammatory disorders of vagina (principal)
CPT/HCPCS: 81514

== ENCOUNTER 2022-08-11 11:20 | Outpatient (CLI) | payer MEDICARE, OTHER ==
--- NOTE | 2022-08-12 09:41 | Mammography Report ---
BILATERAL DIGITAL SCREENING MAMMOGRAM 3D/2D: 08/11/2022 CLINICAL: Routine screening. Comparison is made to exams dated: 03/30/2021 mammogram, 03/30/2020 mammogram, 03/08/2019 mammogram, mammogram, 10/22/2015 mammogram, and 09/11/2014 mammogram - [facility]. There are scattered areas of fibroglandular density in both breasts (category b / 25%-50% glandular t issue). No significant masses, calcifications, or other findings are seen in either breast. There has been no significant interval change. IMPRESSION: NEGATIVE There is no mammographic evidence of malignancy. A 1 year screening mammogram is recommended. Based on the Tyrer Cuzick model (a risk assessment model) the patients lifetime risk is 6.8% and her 10 year risk is 3.6%. According to the ACR, ACS, and NCCN guidelines, an annual breast MRI exam rudi g with mammogram is recommended if the patients lifetime risk is 20% or greater. This exam was interpreted at Station ID: [id number]. NOTE: For mammograms, a report in lay terms will be sent to the patient. Approximately 15% of breast malignancies will not be visualized mammographically. In the management of a palpable breast mass, a negative mammogram must not discourage biopsy of a clinically suspicious lesion. Electronically Signed By: Tyrese rodriguez/zuleima:08/11/2022 14:33:58 letter sent: No_Letter ACR BI-RADS Category 1: Negative 3341F PARENCHYMAL PATTERN: (A) - The breast(s) demonstrate(s) scattered fibroglandular densities. BI-RADS CATEGORY: (1) - 1 Mammogram [id number] 1 year screening LATERALITY: (B)
== END 2022-08-11 11:21 | disposition home or self-care (01) ==
LOC: DI 11:20
PROVIDERS: ATTEND Internal Medicine
DX: Z12.31 Encounter for screening mammogram for malignant neoplasm of breast (principal)

== ENCOUNTER 2022-09-26 08:00 | Outpatient (CLI) | payer MEDICARE, OTHER ==
--- NOTE | 2022-09-26 16:45 | XRAY Report ---
PROCEDURE: Wrist 3 View RT INDICATIONS: RIGH WRIST FRACTURE TECHNIQUE: 3 views of the wrist were acquired. COMPARISON: X-ray forearm 09/18/2022 FINDINGS: Bones: No acute fractures or dislocations. Large ulnar styloid fragment consistent with remote inju ry. No suspicious bony lesions. Soft tissues: No suspicious soft tissue calcifications or masses. IMPRESSION: Remote ulnar styloid fracture. Reviewed by: Rebecca Anderson MD on 09/26/2022 4:43 PM PDT Approved by: Rebecca Anderson MD on 09/26/2022 4:43 PM PDT Station ID: [id number]
== END 2022-09-26 23:59 | disposition home or self-care (01) ==
LOC: DI.WOS 08:00
PROVIDERS: ATTEND Orthopaedic Surgery
DX: S52.611D Displaced fracture of right ulna styloid process, subsequent encounter for closed fracture with routine healing (principal)

== ENCOUNTER 2022-11-10 08:00 | Outpatient (CLI) | payer MEDICARE, OTHER ==
--- NOTE | 2022-11-10 17:57 | XRAY Report ---
PROCEDURE: Wrist 3 View RT INDICATIONS: RIGHT WRIST FRACTURE TECHNIQUE: 3 views of the wrist were acquired. COMPARISON: X-ray wrist 09/26/2022 FINDINGS: Bones: No unchanged appearance of ulna styloid fracture.. No suspicious bony lesions. Soft tissues: No suspicious soft tissue calcifications or masses. IMPRESSION: Unchanged appearance of the ulna styloid fracture. Reviewed by: Rebecca Anderson MD on 11/10/2022 5:56 PM PDT Approved by: Rebecca Anderson MD on 11/10/2022 5:56 PM PDT Station ID: [id number]
== END 2022-11-10 23:59 | disposition home or self-care (01) ==
LOC: DI.WOS 08:00
PROVIDERS: ATTEND Orthopaedic Surgery
DX: S52.611D Displaced fracture of right ulna styloid process, subsequent encounter for closed fracture with routine healing (principal)

== ENCOUNTER 2022-12-01 08:00 | Outpatient (CLI) | payer MEDICARE, OTHER ==
--- NOTE | 2022-12-01 16:16 | XRAY Report ---
PROCEDURE: Wrist 3 View RT INDICATIONS: RIGHT WRIST FRACTURE TECHNIQUE: 3 views of the wrist were acquired. COMPARISON: Right wrist radiographs 11/10/2022, 09/26/2022. Right forearm radiographs 09/18/2022. FINDINGS: Bones: Redemonstrated remote ulnar styloid fracture. Similar alignment of the distal radius with pos sible sclerotic band and cortical irregularity at the metaphysis. Soft tissues: No suspicious soft tissue calcifications. IMPRESSION: 1. Similar alignment of the distal radius with possible findings of subacute fracture. 2. Remote ulnar styloid fracture as before. Reviewed by: Velasquez Franco MD on 12/01/2022 4:15 PM PDT Approved by: Velasquez Franco MD on 12/01/2022 4:15 PM PDT Station ID: [id number]
== END 2022-12-01 23:59 | disposition home or self-care (01) ==
LOC: DI.WOS 08:00
PROVIDERS: ATTEND Orthopaedic Surgery
DX: S12.5 Fracture of sixth cervical vertebra (principal); S52.611D Displaced fracture of right ulna styloid process, subsequent encounter for closed fracture with routine healing

== ENCOUNTER 2023-01-02 10:44 | Outpatient (CLI) | payer MEDICARE, OTHER ==
[2023-01-02 18:03] LABS: BASOPHILS % (AUTO) 0.8 %; EOSINOPHILS % (AUTO) 0.3 %; HCT - HEMATOCRIT 42.8 % (37.0-47.0); HGB - HEMOGLOBIN 13.8 g/dL (12.0-16.0); LYMPHOCYTES # (AUTO) 1.3 10^3/uL (1.5-3.5); LYMPHOCYTES % (AUTO) 33.8 %; MEAN CORPUSCULAR HEMOGLOBIN 31.2 pg (27.0-31.0); MEAN CORPUSCULAR HGB CONC 32.2 g/dL (32.0-36.0); MEAN CORPUSCULAR VOLUME 96.6 fL (81.0-99.0); MEAN PLATELET VOLUME 8.4 fL (7.9-10.8); MONOCYTES # (AUTO) 0.7 10^3/uL (0.0-1.0); MONOCYTES % (AUTO) 16.9 %; NEUTROPHILS # (AUTO) 1.9 10^3/uL (1.5-6.6); NEUTROPHILS % (AUTO) 47.9 %; PLT - PLATELET COUNT 357 10^3/uL (130-450); RED BLOOD COUNT 4.43 10^6/uL (4.20-5.40); RED CELL DISTRIBUTION WIDTH 12.9 % (12.0-15.0); WHITE BLOOD COUNT 3.9 x10^3/uL (4.8-10.8)
[2023-01-02 18:20] LABS: ALBUMIN 4.4 g/dL (3.2-5.5); ALBUMIN/GLOBULIN RATIO 1.8 (1.0-2.2); ALKALINE PHOSPHATASE 86 IU/L (42-121); ALT ALANINE AMINOTRANSFERASE 31 IU/L (10-60); AST ASPARTATE AMINOTRANSFERASE 21 IU/L (10-42); BILIRUBIN,TOTAL 0.7 mg/dL (0.2-1.0); BUN - BLOOD UREA NITROGEN 15 mg/dL (6-20); CALCIUM 9.6 mg/dL (8.5-10.3); CARBON DIOXIDE - CO2 28 mmol/L (21-32); CHLORIDE 100 mmol/L (101-111); CHOL/HDL RATIO 2.6 (<4.4); CHOLESTEROL 136 mg/dL; CREATININE 0.8 mg/dL (0.6-1.3); GFR - MDRD 72 (>89); GLUCOSE 90 mg/dL (74-104); HDL CHOLESTEROL 52 mg/dL; LDL CHOLESTEROL,CALCULATED 56 mg/dL; LDL/HDL RATIO 1.1 (<4.4); POTASSIUM 4.3 mmol/L (3.5-4.5); SODIUM 133 mmol/L (135-145); TOTAL PROTEIN 6.8 g/dL (6.4-8.9); TRIGLYCERIDES 139 mg/dL (48-352); VLDL CHOLESTEROL 28 mg/dL
== END 2023-01-02 10:45 | disposition home or self-care (01) ==
LOC: LAB.N 10:44
PROVIDERS: ATTEND Internal Medicine
DX: I10 Essential (primary) hypertension (principal); E78.5 Hyperlipidemia, unspecified; I48.0 Paroxysmal atrial fibrillation; K21.9 Gastro-esophageal reflux disease without esophagitis; M85.80 Other specified disorders of bone density and structure, unspecified site
CPT/HCPCS: 36415; 80053; 80061; 83721; 85025

== ENCOUNTER 2023-01-09 14:55 | Outpatient (CLI) | payer MEDICARE, OTHER ==
--- NOTE | 2023-01-09 15:40 | XRAY Report ---
PROCEDURE: Hand 3 View RT INDICATIONS: RIGHT HAND JOINT PAIN TECHNIQUE: 3 views of the hand(s) acquired. COMPARISON: None. FINDINGS: Bones: Subluxation is present at the fifth MCP joint. No visualized fracture. Soft tissues: No suspicious soft tissue calcifications or masses. IMPRESSION: Fifth MCP subluxation. No visualized acute fracture or dislocation. However, occult injury cannot be excluded. Recommend short interval imaging follow-up in 7-10 days as clinically indicated for additio nal evaluation. Reviewed by: Rebecca Anderson MD on 01/09/2023 3:39 PM [facility] Approved by: Rbeecca Anderson MD on 01/09/2023 3:39 PM [facility] Station ID: [id number]
== END 2023-01-09 14:56 | disposition home or self-care (01) ==
LOC: DI 14:55
PROVIDERS: ATTEND Internal Medicine
DX: S63.216A Subluxation of metacarpophalangeal joint of right little finger, initial encounter (principal)

== ENCOUNTER 2023-05-06 22:17 | Emergency (ER) | payer MEDICARE, OTHER ==
--- NOTE | 2023-05-06 22:31 | ED Physician Documentation ---
PD HPI UPPER EXT INJURY - Stated complaint Stated Complaint: FALL/R SHOULDER INJ - History obtained from History obtained from: Patient - Additonal information Additional information: HPI from patient. 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 She was walking to her hottub, tripped over garden hose, landing on her right side on concrete surface. Denies any other injury and specifically and confidently denies head injury, neck injury. Medications include xarelto. Denies MARTIN, LOC, neck pain, hip pain. The right shoulder pain is severe and distinctly worse with any movement or p alpation. Review of Systems Eyes: denies: Loss of vision, Decreased vision GI: denies: Nausea, Vomiting Skin: denies: Laceration (s) Musculoskeletal: reports: Joint pain. denies: Neck pain, Back pain, Pain with weight bearing Neurologic: denies: Generalized weakness, Focal weakness, Numbness, Confused, Altered mental status, Headache, Head injury, LOC PD PAST MEDICAL HISTORY - Past Medical History Cardiovascular: Hypertension, High cholesterol Respiratory: None Neuro: None Endocrine/Autoimmune: None GI: GERD RESIDENT ENGINEER: None : Nocturia HEENT: None Psych: None Musculoskeletal: Chronic back pain Derm: Rosacea - Past Surgical History Past Surgical History: Yes Ortho: Carpal Tunnel surgery - Present Medications Home Medications: Ambulatory Orders Medication Instructions Recorded Confirmed Amlodipine Besylate [Norvasc] 5 mg PO DAILY PM 05/19/20 05/06/23 Losartan Potassium [Cozaar] 100 mg PO DAILY 05/19/20 05/06/23 Multivitamin/Iron/Folic Acid 1 tab ORAL DAILY 05/19/20 05/06/23 [Centrum Women Tablet] Pravastatin [Pravachol] 20 mg PO DAILY 05/19/20 05/06/23 Calcium Carbonate [Calcium] 1 tab PO DAILY 05/06/23 05/06/23 Cholecalciferol [Vitamin D3] 2,000 units PO DAILY 05/06/23 05/06/23 Metoprolol Succinate [Toprol Xl] 1 tab PO DAILY PM 05/06/23 05/06/23 Omeprazole 1 tab PO DAILY PM 05/06/23 05/06/23 Rivaroxaban [Xarelto] 1 tab PO DAILY PM 05/06/23 05/06/23 Topiramate [Topamax] 1 tab PO DAILY PM 05/06/23 05/06/23 Diazepam [Valium] 2 mg PO TID PRN #20 tablet 05/07/23 Oxycodone HCl/Acetaminophen 1 - 2 each PO Q6H PRN #14 tablet 05/07/23 [Percocet 5-325 mg Tablet] - Allergies Allergies/Adverse Reactions: Allergies Allergy/AdvReac Type Severity Reaction Status Date / Time No Known Drug Allergies Allergy Verified 05/06/23 22:35 - Social History Does the pt smoke?: No Smoking Status: Never smoker Does the pt drink ETOH?: Yes Does the pt have substance abuse?: No - Immunizations Immunizations are current?: Yes - POLST Patient has POLST: No PD ED PE NORMAL - Vitals Vital signs reviewed: Yes - General General: Alert and oriented X 3, Well developed/nourished, Other (obvious painful distress, mild at rest, severe with any movement involving RUE at shoulder) - HEENT HEENT: Atraumatic, PERRL, EOMI - Neck Neck: No bony TTP - Derm Derm: Other (RUE: no abrasions nor lacerations) - Neuro Neuro: Alert and oriented X 3, No motor deficit (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; full strength in right finger abduction, wrist extension), No sensory deficit (LTS intact RUE including hand, FA, lateral aspect of deltoid), Normal speech Results - Vitals Vitals: Oxygen O2 Source Room air - Rads (name of study) right shoulder xrays Relevant Findings:: Prelim report reviewed, EMP independent interpretation of test (I reviewed these images and my interpretation is: minimally displaced fractures of subcapital humerus and greater tuberosity), See rad report PD Medical Decision Making - ED course Complexity details: reviewed results, re-evaluated patient, considered differential, d/w patient ED course: Presents after trip and fall. Because she is on Xarelto, I quite specifically and repeatedly inquired as to any possibility of head injury as well as any MARTIN or neurologic c/o (numbness, weakness, visual changes, AMS); patient strongly and with certainty consistently denies any head injury, even trivial. 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 Thus, imaging studies are limited to right shoulder xrays and do not include CTH. Xrays demonstrate right humeral neck (subcapital) fracture as well as lateral tuberosity fractures. These fractures appear minimally displaced. Her pain was difficult to control but eventually effective and lasting pain relief was achieved with repeated doses of IV dilaudid, one dose of IV toradol, 2mg IV diazepam (for muscle relaxant property), 5mg PO diazepam and 10mg oxycodone. Early in stay, even after first few doses of IV dilaudid, she had great difficulty with any ROM of the RUE at the shoulder, but by the time of discharge, she is AAOx3 (no overt drowsiness, speaks clearly and articulately), sitting up over edge of bed (shoulder in sling) and in NAD. Results of the xrays were d/w patient shortly after they were completed. She arrived to ED with a sling, and it appears to be in perfect condition and thus new sling was not provided as it was unnecessary to replace her current sling. The ED RN assisted with adjustment of the sling. Return precautions reviewed. I have electronically submitted prescriptions for percocet and diazepam to patient's pharmacy of choice. Advised to seek follow up with orthopedic surgeon within 3-5 days. Departure - Departure Disposition: 01 Home, Self Care Clinical Impression: Humerus fracture Qualifiers: Encounter type: initial encounter Humerus Location: proximal Fracture type: closed Fracture morphology: unspecified fracture morphology Laterality: right Qualified Code(s): S42.201A - Unspecified fracture of upper end of right humerus, initial encounter for closed fracture Condition: Good Instructions: ED Fx Shoulder, ED Sling Follow-Up: Ashok Myers MD [Provider Admit Priv/Credential] - Prescriptions: Oxycodone HCl/Acetaminophen [Percocet 5-325 mg Tablet] 1 - 2 each PO Q6H PRN #14 tablet PRN Reason: pain Diazepam [Valium] 2 mg PO TID PRN #20 tablet PRN Reason: Spasms Comments: The x-rays show that you have a few fractures involving the proximal (top-end) humerus. None of these fractures appear to be displaced to any significant extent. Keep the right arm in the sling until you follow-up with an orthopedic surgeon. If you do not have an orthopedic surgeon, consider contacting the orthopedic on-call (Dr. Myers, whose office information, including the phone number, are included on these discharge instructions). Another means of follow- up is to contact your primary care provider or your insurance carrier to inquire about the referral process to orthopedics. I have electronically submitted prescriptions for Percocet (narcotic/opiate pain medication) as well as diazepam (which I am prescribing for the muscle-relaxant properties) to the [facility] pharmacy in [place]. I am prescribing a short course of narcotic pain medication for you. These are potentially dangerous and addictive medications that should be used carefully. These medications may constipate you. Take an teuc-vzq-bpcrkma stool softener (docusate) twice daily with plenty of water while taking these medications. If you go 24 hours without a bowel movement, take [id number] miralax, per package instructions. Do not drink or drive while taking these medications. If you received narcotic or sedating medications while in the emergency department, do not drive for 24 hours. Store this medication in a safe, secure place and out of reach of children. It is a violation of federal law to give or sell this medication to another person or to use in a manner other than prescribed. The ED will not refill narcotic prescriptions, including prescriptions lost or stolen. To dispose of unwanted medications: 1. [facility] at [address] in [place] has a medication drop box. They accept prescription medications (in pill form) Monday through Monday 9:00 a.m. to 5:00 p.m. 2. The [facility] [employer] accepts prescription medications (in pill form only) for disposal year round. Call for more information. 3. Contact the [facility] for the next [facility] sponsored prescription drug collection event. , [phone], or [phone]; Discharge Date/Time: 05/07/23 01:16
[2023-05-06] MEDS: HYDROmorphone 1 MG/ML CARPUJECT IVP STA ×3 (22:45→23:52)
[2023-05-06] MEDS: ONDANSETRON 4 MG/2 ML VIAL IVP STA (22:46)
--- NOTE | 2023-05-06 23:20 | XRAY Report ---
PROCEDURE: Shoulder 2+V RT INDICATIONS: right shoulder injury TECHNIQUE: 3 views of the shoulder were acquired. COMPARISON: None. FINDINGS: Bones: No dislocations. There is a subcapital humeral neck fracture with additional fracture planes crossing the base of the greater tuberosity. No suspicious bony lesions. Visualized ribs appear int act. Soft tissues: No suspicious soft tissue calcifications. The visualized lungs are within normal limi ts. IMPRESSION: Humeral head and neck fractures, with greater tuberosity fracture across its base. Reviewed by: Giovanni Black MD on 05/06/2023 11:19 PM PDT Approved by: Giovanni Black MD on 05/06/2023 11:19 PM PDT Station ID: [id number]
[2023-05-06] MEDS: oxyCODONE 5 MG TABLET PO STA (23:49)
[2023-05-06] MEDS: KETOROLAC 30 MG/ML VIAL IVP STA (23:49)
[2023-05-07] MEDS: diazePAM INJ 5 MG/ML SYRINGE IVP STA (00:07)
[2023-05-07] MEDS: diazePAM 5 MG TABLET PO STA (01:03)
[2023-05-07] MEDS: oxyCODONE/ACET 5/325 Prepack 4 PO STA (01:03)
[2023-05-07 01:24] VITALS: BP 121/68; O2SAT 98
== END 2023-05-07 01:16 | disposition home or self-care (01) ==
LOC: ED 22:17
DX: S42.291A Other displaced fracture of upper end of right humerus, initial encounter for closed fracture (principal); S42.211A Unspecified displaced fracture of surgical neck of right humerus, initial encounter for closed fracture; W01.0XXA Fall on same level from slipping, tripping and stumbling without subsequent striking against object, initial encounter; Y92.008 Other place in unspecified non-institutional (private) residence as the place of occurrence of the external cause; I10 Essential (primary) hypertension; E78.00 Pure hypercholesterolemia, unspecified; Z79.01 Long term (current) use of anticoagulants; Z79.899 Other long term (current) drug therapy
CPT/HCPCS: 73030; 96374; 96375; 96376; 99284; 99285; A9270; J1170

== ENCOUNTER 2023-05-22 08:00 | Outpatient (CLI) | payer MEDICARE, BC, OTHER ==
--- NOTE | 2023-05-22 16:00 | XRAY Report ---
PROCEDURE: Shoulder 3 View RT INDICATIONS: RIGHT SHOULDER PAIN TECHNIQUE: 3 views of the shoulder were acquired. COMPARISON: X-ray shoulder 05/06/2023 FINDINGS: Bones: Humeral head/neck fracture with fracture lucency involving the greater tuberosity. Overall ap pearance is suggestive of slightly less prominent appearance of inferior subluxation. Soft tissues: No suspicious soft tissue calcifications. The visualized lungs are within normal limi ts. IMPRESSION: Humeral head/neck fracture with slightly less prominent appearance of inferior subluxation. Reviewed by: Rebecca Anderson MD on 05/22/2023 3:58 PM PDT Approved by: Rebecca Anderson MD on 05/22/2023 3:58 PM PDT Station ID: [id number]
--- NOTE | 2023-05-22 16:16 | XRAY Report ---
PROCEDURE: Elbow 3 View RT INDICATIONS: LEFT ELBOW PAIN TECHNIQUE: 3 views of the elbow were acquired. COMPARISON: X-ray shoulder 05/06/2023 FINDINGS: Bones: No fractures or dislocations. No suspicious bony lesions. Soft tissues: Minimal effusion. No suspicious soft tissue calcifications or masses. IMPRESSION: Minimal effusion. No visualized acute fracture or dislocation. However, occult injury cannot be exclu ded. Recommend short interval imaging follow-up in 7-10 days as clinically indicated for additional e valuation. Reviewed by: Rebecca Anderson MD on 05/22/2023 4:14 PM PDT Approved by: Rebecca Anderson MD on 05/22/2023 4:14 PM PDT Station ID: [id number]
== END 2023-05-22 23:59 | disposition home or self-care (01) ==
LOC: DI.WOS 08:00
PROVIDERS: ATTEND Orthopaedic Surgery
DX: M25.521 Pain in right elbow (principal); M25.421 Effusion, right elbow; S42.291A Other displaced fracture of upper end of right humerus, initial encounter for closed fracture

== ENCOUNTER 2023-06-21 13:19 | Outpatient (CLI) | payer MEDICARE, BC, OTHER ==
--- NOTE | 2023-06-21 15:13 | XRAY Report ---
PROCEDURE: Shoulder 2+V RT INDICATIONS: RIGHT HUMERUS FRACTURE TECHNIQUE: 3 views of the shoulder were acquired. COMPARISON: X-ray shoulder 05/22/2023 FINDINGS: Bones: Comminuted humeral head/neck fracture extending to the greater tuberosity. Alignment is stabl e. No dislocation at the glenohumeral joint space. There remains inferiorly subluxed. Fracture lucenc ies are mildly less prominent.. No suspicious bony lesions. Visualized ribs appear intact. Soft tissues: No suspicious soft tissue calcifications. The visualized lungs are within normal limi ts. IMPRESSION: Stable alignment of comminuted humeral head/neck fracture. Reviewed by: Rebecca Anderson MD on 06/21/2023 3:11 PM PDT Approved by: Rebecca Anderson MD on 06/21/2023 3:11 PM PDT Station ID: [id number]
== END 2023-06-21 13:20 | disposition home or self-care (01) ==
LOC: DI 13:19
PROVIDERS: ATTEND Orthopaedic Surgery
DX: S42.221D 2-part displaced fracture of surgical neck of right humerus, subsequent encounter for fracture with routine healing (principal)

== ENCOUNTER 2023-08-09 14:41 | Outpatient (CLI) | payer MEDICARE, BC, OTHER ==
--- NOTE | 2023-08-11 06:02 | XRAY Report ---
PROCEDURE: Shoulder 2+V RT INDICATIONS: 2-PART DISPLACED FX OF SURGICAL NECK OF R HUMERUS TECHNIQUE: 3 views of the shoulder were acquired. COMPARISON: Right shoulder radiograph 05/22/2023 FINDINGS: Bones: Comminuted proximal humeral surgical neck fracture. Increased bony bridging and callus format ion across fracture plane indicating healing process. Alignment is unchanged compared to prior. No ne w fracture identified. Soft tissues: No suspicious soft tissue calcifications. The visualized lungs are within normal limi ts. IMPRESSION: Ongoing healing of comminuted right humeral surgical neck fracture in similar alignment compared to p rior. Reviewed by: Germania Garrison MD, PhD on 08/11/2023 6:00 AM PDT Approved by: Germania Garrison MD, PhD on 08/11/2023 6:00 AM PDT Station ID: [id number]
== END 2023-08-09 14:42 | disposition home or self-care (01) ==
LOC: DI 14:41
PROVIDERS: ATTEND Orthopaedic Surgery
DX: S42.221D 2-part displaced fracture of surgical neck of right humerus, subsequent encounter for fracture with routine healing (principal)

== ENCOUNTER 2023-08-15 09:13 | Outpatient (CLI) | payer MEDICARE, BC, OTHER ==
--- NOTE | 2023-08-16 08:47 | Mammography Report ---
BILATERAL DIGITAL SCREENING MAMMOGRAM 3D/2D: 08/15/2023 CLINICAL: Routine screening. Comparison is made to exams dated: 08/11/2022 mammogram, 03/30/2021 mammogram, 03/30/2020 mammogram, 02/08 mammogram, and 02/01/2018 mammogram - [facility]. There are scattered areas of fibroglandular density in both breasts (category b / 25%-50% glandular t issue). No significant masses, calcifications, or other findings are seen in either breast. There has been no significant interval change. IMPRESSION: NEGATIVE There is no mammographic evidence of malignancy. A 1 year screening mammogram is recommended. Based on the Tyrer Cuzick model (a risk assessment model) the patient's lifetime risk is 6.5% and her 10 year risk is 3.6%. According to the ACR, ACS, and NCCN guidelines, an annual breast MRI exam rudi g with mammogram is recommended if the patient's lifetime risk is 20% or greater. This exam was interpreted at Station ID: [id number]. NOTE: For mammograms, a report in lay terms will be sent to the patient. Approximately 15% of breast malignancies will not be visualized mammographically. In the management of a palpable breast mass, a negative mammogram must not discourage biopsy of a clinically suspicious lesion. Electronically Signed By: Tyrese [email or web address]:08/15/2023 13:39:17 letter sent: No_Letter ACR BI-RADS Category 1: Negative [id number] PARENCHYMAL PATTERN: (A) - The breast(s) demonstrate(s) scattered fibroglandular densities. BI-RADS CATEGORY: (1) - 1 RECOMMENDATION: (ANNUAL) - Recommend routine annual screening mammography. [id number] 1 year screening LATERALITY: (B)
== END 2023-08-15 09:14 | disposition home or self-care (01) ==
LOC: DI 09:13
DX: Z12.31 Encounter for screening mammogram for malignant neoplasm of breast (principal); R92.323 Mammographic fibroglandular density, bilateral breasts